=== PATIENT | female | born 1975 | race Asian ===

== ENCOUNTER 2024-08-02 04:36 | Inpatient (IN) | payer OTHER, SELFPAY ==
[2024-08-01 23:22] VITALS: BP 138/82
[2024-08-01 23:41] VITALS: BMI 27.1
[2024-08-01 23:42] LABS: % Basophils 0.5 % (0-2); % Eosinophils 0.5 % (0-6); % Immature Granulocytes 0.4 % (0-0.5); % Lymphocytes 10.3 % (20.5-51.1); % Monocytes 5.4 % (1.7-9.3); % Neutrophils 82.9 % (42.2-75.2); Absolute Lymphocytes 0.9 10^3/uL (1.2-3.4); Absolute Monocytes 0.5 10^3/uL (0.1-0.6); Hematocrit 32.7 % (37.0-47.0); Hemoglobin 11.4 g/dL (12.0-16.0); Mean Corp Hgb Conc. 34.9 g/dL (33.0-37.0); Mean Corpuscular Hgb 31.3 pg (27.0-31.0); Mean Corpuscular Volume 89.8 fL (81.0-99.0); Mean Platelet Volume 10.8 fL (7.4-10.4); Nucleated Red Blood Cells % 0 %; Platelet Count 199 10^3/uL (130-400); Red Blood Cell Count 3.64 10^6/uL (4.20-5.40); Red Cell Dist. Width 12.8 % (11.5-14.5); White Blood Cell Count 8.5 10^3/uL (4.8-10.8)
--- NOTE | 2024-08-01 23:48 | ED.GENMED ---
History of Present Illness
General
Chief Complaint: Abdominal Pain
Source: patient
Exam Limitations: none
Time Seen by Provider: 08/01/24 23:39
Nursing documentation reviewed up to this point in time: agreed with
History of Present Illness
History of Present Illness:
Note:
CHIEF COMPLAINT(S)
Abdominal pain
HISTORY OF PRESENT ILLNESS
The patient is a 48-year-old female presenting with abdominal pain that began around 4:00 AM this morning. The pain is described as diffuse, not limited to the left side. She denies any previous episodes of similar pain and lacks a history of
abdominal surgeries. The pain onset was sudden, with no accompanying diarrhea or constipation. She reports no vomiting but experiences nausea. The pain does not radiate to the back and is not accompanied by urinary symptoms such as burning or
hematuria. The patient possibly experienced a sensation of faintness last night around 9:00 PM but was initially waiting to see their regular doctor in the morning if symptoms improved. However, the symptoms worsened. She denies any history of
gastrointestinal issues and denies the presence of dyspnea, chest pain, or fevers. She has no known allergies to pain medications. The pain is worse with movement. She has never had pain like this in the past. Her last bowel movement was around 7:00
pm.
ALLERGIES
No known allergies to pain medications.
PHYSICAL EXAM
General: Patient appears uncomfortable secondary to pain but is non-toxic appearing
Skin: Warm and dry, no rashes or lesions
Head: Normocephalic, atraumatic
Eyes: Sclera non-icteric. EOMs intact.
Cardiac: Regular rate and rhythm, no murmurs
Peripheral Vascular: No lower extremity swelling or edema
Pulm: Normal respiratory effort, no wheezes, rales, or rhonchi
Abdomen: Diffuse lower abdominal tenderness to palpation noted with guarding, no palpable masses, decreased breath sounds
Neuro: CN II-XII intact, no focal neurologic deficits.
Psychiatric: Appropriate mood and affect.
PLAN
- Initiate pain management and address nausea with appropriate medications.
- Proceed with a computed tomography (CT) scan
- Continue monitoring patient�s symptoms and re-evaluate after imaging results are available.
DIFFERENTIAL DIAGNOSIS
The Differential Diagnosis includes, in no particular order and is not limited to:
small bowel obstruction, diverticulitis, appendicitis, gastritis, etc.
CHART REVIEW
- Reviewed ER physician documentation from 10/02/2021, patient seen for left upper chest pain and back pain, had unremarkable workup and was discharged
- Family physician is Dr. Casey Silva
DISPOSITION/MDM
48-year-old female presents emergency department today with concerns of diffuse abdominal pain starting yesterday. She was found to have hemoperitoneum likely secondary to ruptured ovarian cyst versus. She had no abdominal trauma. MANUFACTURING ENGINEER AUTOMOTIVE on-call
made aware. She is hemodynamically stable. Patient referred to hospitalist for admission.
Past History
Past History
ED Past Medical History: None
ED Past Surgical History: None
Social History
Tobacco: Non-smoker
Alcohol: None
Drug: None
Personal:
Living: with family
Employment: Not employed
Review of Systems
Review of Systems
All Other Systems: ROS reviewed and negative except as documented in HPI and ROS
Phy Exam
Physical Exam
Physical Exam:
see hpi
Course
Orders/Labs/Results
Orders:
Orders
08/01/24 23:31
Complete Blood Count/With Diff Urgent
Comprehensive Metabolic Panel Urgent
Lipase Urgent
08/01/24 23:46
Test Result ONCE
08/01/24 23:47
HCG, Urine Qualitative Screen Urgent
Date Specimen was Collected: 08/01/24
Time Specimen was Collected: 23:46
Urinalysis Reflex To Culture Urgent
Date Specimen was Collected: 08/01/24
Time Specimen was Collected: 23:46
Urine Microscopic Reflex Cult Urgent
Urine Culture Urgent
PAYAL Source: U
Specimen Description:
Date Specimen was Collected: 08/01/24
Time Specimen was Collected: 23:46
08/01/24 23:49
0.9% Sodium Chloride 1000 ml [Nss] 1,000 ml IV BOLUS
08/02/24 00:03
CT Abd/Pel (IV only)-DH only Urgent
Comment:
Reason For Exam: diffuse lower abdominal pain
HYDROmorphone [Dilaudid] 0.5 mg IV NOW STA
Ondansetron Injectable [Zofran] 4 mg IV NOW STA
08/02/24 01:34
US Pelvis W Transvag Combined Urgent
Comment:
Reason For Exam: pelvic pain, bleeding
08/02/24 01:35
HYDROmorphone [Dilaudid] 0.5 mg IV NOW STA
Ondansetron Injectable [Zofran] 4 mg IV NOW STA
08/02/24 01:36
0.9% Sodium Chloride 500 ml [Nss] 500 ml IV BOLUS
08/02/24 03:59
Admit/Transfer Patient As Directed
Co-Sign Provider:
Level of Care: Inpatient admission
Assign to:: Telemetry
Physician / Group: Mao
Diagnosis: Ruptured ovarian cyst
Reason for Telemetry: Other
Other Reason for Telemetry: hemoperitoneum
Date to Stop Telemetry: 08/04/24
Time to Stop Telemetry: 11:00
Reason for Hospitalization: hemoperitoneum
Expected length of stay greater than two midnights?: Yes
ELOS- Estimated Length of Stay in days: 2
I certify the patient meets the requirements for IP care: Yes
PRN Pain Medication Management As Directed
May give lesser potent ordered pain med per pt: Yes
preference::
Protocol:: Medication orders for pain may be administered in a
manner that supports deferring to patient preference
when the pt is:
- Requesting an ordered lesser potent pain medication.
Least to most potent pain medications are defined
as: acetaminophen < NSAID < tramadol < opioids
(morphine, oxycodone, hydromorphone).
- Requesting a lesser dose of the same medication IF
ORDERED.
- Requesting a less intrusive route of administration
if both routes are prescribed by the provider (PO <
IV).
08/02/24 04:00
Code Status As Directed
Resuscitation Status: Full Code
08/02/24 04:40
Acetaminophen [Tylenol/Feverall] 650 mg RECTAL Q4HPRN PRN
Bisacodyl [Dulcolax] 10 mg RECTAL [id number] PRN
Dextrose 5%/Lactringers 1000ML [D5lr] 1,000 ml IV 100 mls/hr
Docusate W/Senna [Senokot-S] 1 tablet PO BIDPRN PRN
HYDROmorphone [Dilaudid] 0.5 mg IV Q4HPRN PRN
Ondansetron Injectable [Zofran] 4 mg IV Q6HPRN PRN
Oxycodone [Roxicodone] 5 mg PO Q4HPRN PRN
Polyethylene Glycol Powder [Miralax] 17 grams PO DAILYPRN PRN
08/02/24 04:40
Consult MANUFACTURING ENGINEER AUTOMOTIVE [MANUFACTURING ENGINEER AUTOMOTIVE CONSULT] Routine
Consulting Provider: Judy Peterson
Was physician already notified: Yes
Reason for consult: hemoperitoneum, complex ruptured ovarian cyst or fibroid
Activity As Directed
Activity Level: With Assistance
Pneumatic Compression Sleeves As Directed
Type: Knee high
Vital Signs As Directed
Frequency: Per unit guidelines
Pulse Ox/spot Check [RESP] Routine
Quantity: 1
DX Deep Vein Thrombosis Video Routine
08/02/24 06:00
Type And Crossmatch [Type+Screen] IN AM
NPO
Allow oral meds: Yes
Allow clear liquids: Sips of Clears
Basic Metabolic Panel IN AM
Complete Blood Count/No Diff IN AM
PTT IN AM
Prothrombin Time IN AM
Levothyroxine [Synthroid] 88 mcg PO DAILY @ 0600
08/02/24 14:00
H&H Q8H
08/04/24 11:00
DC Protocol for Telemetry ONCE
Abnormal Lab Results
08/01/24 08/01/24
23:31 23:47
RBC 3.64 L 10^6/uL
(4.20-5.40)
Hgb 11.4 L g/dL
(12.0-16.0)
Hct 32.7 L %
(37.0-47.0)
MCH 31.3 H pg
(27.0-31.0)
MPV 10.8 H fL
(7.4-10.4)
Absolute Neuts (auto) 7.0 H 10^3/uL
(1.4-6.5)
Absolute Lymphs (auto) 0.9 L 10^3/uL
(1.2-3.4)
Neutrophils % 82.9 H %
(42.2-75.2)
Lymphocytes % 10.3 L %
(20.5-51.1)
Glucose 113 H mg/dl
(70-99)
Ur Occult Blood Reflex 2+ A
(Negative)
Leukocyte Esterase Rfl 1+ A
(Negative)
Urine RBC 3-6 A /HPF
(0-2)
Urine Bacteria (Reflex) Few A
(Negative)
Urine Albumin (Reflex) 1+ A
(Neg - Trace)
08/01/24 23:31
08/01/24 23:31
Vital Signs
Initial and Last Documented VS:
Initial Vital Signs
Temp Pulse Resp BP Pulse Ox
98.0 F 91 20 138/82 99
08/01/24 23:22 08/01/24 23:22 08/01/24 23:22 08/01/24 23:22 08/01/24 23:22
Last Documented Vital Signs
Temp Pulse Resp BP Pulse Ox
98.2 F 75 16 116/71 98
08/02/24 04:54 08/02/24 04:54 08/02/24 04:54 08/02/24 04:54 08/02/24 04:54
*Critical Care Note
Total Time (30-74mins, 75-104mins- exclusive of procedures): Not Applicable
ED Attending Note
-
Portions of this chart may have been created with voice recognition software.� Occasional wrong word or��sound alike� substitutions may have occurred due to the inherent limitations of voice recognition software.
Discharge Plan
Departure
Patient Disposition: Admit
Date of Disposition: 08/02/24
Time of Disposition: 03:33
Admit to: Med/Surg
Presentation/result/management discussed w/ accepting MD/DO: Hospitalist
Condition: Fair
Discharge Problem:
Hemoperitoneum, Cyst of left ovary
Interventions
Interventions:
*Risk Screen - Suicide Last Done: 08/01/24 23:22
*General Assessment Last Done: 08/01/24 23:22
*Neglect/Abuse Screening Last Done: 08/01/24 23:22
*ED- Fall Risk Assessment Last Done: 08/02/24 00:00
*ED COVID-19 Vaccine History Last Done: 08/01/24 23:22
*Nursing Disposition Last Done: 08/02/24 04:36
IN-Uljhhw-Gjmfhxcojg Assessment Last Done: 08/02/24 00:07
Discharge Date and Time
Discharge Date/Time: 08/02/24 04:36
[2024-08-01] MEDS: NSS 1000 IV (23:50)
[2024-08-01 23:56] LABS: ALT (SGPT) 22 U/L (0-35); AST (SGOT) 22 U/L (14-36); Albumin 4.1 g/dl (3.5-5.0); Alkaline Phosphatase 66 U/L (38-126); Blood Urea Nitrogen 16 mg/dl (7-17); Calcium 9.9 mg/dl (8.4-10.2); Carbon Dioxide 29 mmol/L (22-30); Chloride 104 mmol/L (98-107); Estimated Creatinine Clearance 86 ml/min; Glucose 113 mg/dl (70-99); Lipase 62 U/L (23-300); Potassium 4.5 mmol/L (3.5-5.1); Sodium 137 mmol/L (135-145); Total Bilirubin 0.4 mg/dl (0.2-1.3); Total Protein 6.9 g/dl (6.3-8.2); eGFR > 60.00
[2024-08-02 00:02] LABS: HCG, Urine Qualitative Screen Negative; Urine Albumin 1+ (Neg - Trace); Urine Bilirubin Negative (Negative); Urine Character Slightly Cloudy (Clear); Urine Color Yellow; Urine Glucose Negative (Negative); Urine Ketone Negative (Negative); Urine Leukocyte 1+ (Negative); Urine Nitrite Negative (Negative); Urine Occult Blood 2+ (Negative); Urine Specific Gravity 1.025 (<1.030); Urine Urobilinogen Negative (Neg - 1+)
[2024-08-02] MEDS: DILAUDID 0.5 MG IV ×2 (00:14→01:43)
[2024-08-02] MEDS: ZOFRAN 4 MG IV ×2 (00:14→01:43)
[2024-08-02 00:28] LABS: Urine Squamous Cell >30 /LPF (Few)
[2024-08-02 00:29] LABS: Urine Bacteria Few (Negative); Urine White Cell 0-2 /HPF (0-5)
[2024-08-02] MEDS: NSS 500 IV (01:43)
[2024-08-02 01:44] VITALS: BP 113/65
[2024-08-02 02:00] VITALS: BP 118/67
--- NOTE | 2024-08-02 03:41 | HPS.HSE ---
Family Physician
-
Family Physician: Casey Silva
Chief Complaint
-
Abdominal pain
History of Present Illness
This is a 48-year-old female with past medical history of hypothyroidism who presents to the emergency department with 1 day history of pelvic and abdominal pain.
Patient reported that she was at 4 AM the previous day with bilateral lower abdominal and pelvic pain. She denied any flank pain. She denies having any fevers or chills. She denies any dysuria. She denies having any diarrhea. She denies any
vaginal discharge. Pain persisted throughout the day and then in the evening she started having nausea vomiting. It was nonbloody and nonbilious.
Patient denies any ingestions. She denies any new medications. She denies any recent travels or sick contacts.
In the emergency department the patient was afebrile, blood pressure was 115/75 with a pulse rate of 81 and she was satting 98% on room air.
Hemoglobin was 11.4 she had normal platelet count and a normal WBC. Electrolytes BUN/creatinine were normal. LFTs were normal.
UA was unremarkable
Ultrasound of the pelvis showed hemorrhagic fluid within the pelvis including the suspected clots in the left adnexa measuring up to 9 hemoperitoneum which can be related to rupture of the left ovarian corpus luteum
CT of the abdomen pelvis revealing moderate volume of heterogeneous free fluid throughout the abdomen and pelvis most compatible with hemoperitoneum. Moderate volume in the pelvis. There is a suggestion of a small left ovarian complex lithium
which could reflect sequela of rupture of the left ovarian complex lesion. There is also note made of a large fibroid in the posterior uterus. This is considerably subjective spontaneous rupture although this points less likely as the next
management for the hemoperitoneum.
Medical History
Past Medical History
Past Medical History: Reports Hypothyroidism
Past Surgical History: Reports Other
Social History
Tobacco: Non-smoker
Alcohol: None
Drug: None
Personal:
Living: With Family
Family History
Family History: Not pertinent
Allergies / Home Medications
Allergies reflects when Allergies were last updated in [facility].
Home Medications with original date entered in [facility]
Allergy/Medication List:
Allergies
Allergy/AdvReac Type Severity Reaction Status Date / Time
No Known Allergies Allergy Unverified 09/28/21 09:04
Home Medications
levothyroxine 88 mcg tablet 88 mcg PO DAILY 08/01/24
Review of Systems
-
Constitutional: Reports No Symptoms
EENT: Reports No Symptoms
Respiratory: Reports No Symptoms
Cardiac: Reports No Symptoms
Abdomen/GI: Reports Abdominal Pain
: Reports No Symptoms
Musculoskeletal: Reports No Symptoms
Skin: Reports No Symptoms
Neurological: Reports No Symptoms
Endocrine: Reports No Symptoms
Hematologic/Lymphatic: Reports No Symptoms
Psych: Reports No Symptoms
Physical Exam
Vital Signs
Vital Signs
Temp Pulse Resp BP Pulse Ox
98.0 F 81 20 113/65 98
08/01/24 23:22 08/02/24 01:45 08/01/24 23:22 08/02/24 01:44 08/02/24 01:45
Physical Exam
General: Well Developed, Well Nourished and No Apparent Distress
HEENT: NormoCephalic, Moist mucous membranes and Atraumatic
Respiratory: Clear
Cardiac: S1/S2 and Regular Rhythm; No Murmur or Rub
GI: Soft, Non Tender, Non Distended and Normal Bowel Sounds; No Organomegaly
Rectal: Deferred by Provider
Musculoskeletal: No Clubbing, No Cyanosis and No Edema
Skin: No Rash
Neuro: Nonfocal/grossly intact
Laboratory Results
-
08/01/24 23:31
08/01/24 23:31
Laboratory Results
Total Bilirubin 0.4 mg/dl (0.2-1.3) 08/01/24 23:31
AST 22 U/L (14-36) 08/01/24 23:31
ALT 22 U/L (0-35) 08/01/24 23:31
Alkaline Phosphatase 66 U/L (38-126) 08/01/24 23:31
Lipase 62 U/L (23-300) 08/01/24 23:31
Impression/Plan
-
IMPRESSION:
48-year-old female with history of hypothyroid who presents with abdominal pain. CT scan shows hemoperitoneum likely secondary to complicated ruptured left ovarian cyst. No personal history of any malignancy. No signs of acute infection. She is
afebrile, without leukocytosis. She is nontoxic-appearing at this time. There is seems to be a significant amount of fluid in the peritoneum but no evidence of any rupture. Hemoglobin is stable at 11 but unknown baseline.
PLAN:
Pneumoperitoneum secondary to likely ovarian cyst. There is also a posterior fibroid that could be source of bleeding but less likely.
-Admit to telemetry
-Patient with stable status post ovarian cyst rupture does not require immediate surgery and can be monitored
-Type and screen
-H&H every 12
-Pain control and antiemetics
-N.p.o. for now, iv fluids
-Hold off antibiotics
-may need eval for malignancy
- fiscal services manager aware and consulted (Dr. Peterson)
DVT PPX - SCDs for now
Code status - Full code
[2024-08-02 04:44] VITALS: BMI 27.0
[2024-08-02 04:54] VITALS: BP 116/71
[2024-08-02] MEDS: D5LR 1000 IV (05:04)
[2024-08-02] MEDS: SYNTHROID 88 MCG PO (05:04)
[2024-08-02 06:00] VITALS: BMI 27.1
--- NOTE | 2024-08-02 06:03 | PTCARENOTE ---
pt is aaox3, reported pain 4/10, and nauseous. declined any pain meds at this time. stated Dilaudid made her feel better, but also a little numb all over. pt denies any vaginal bleeding at this time. pt placed on IVF, oriented to room w/ call mills
in reach. will monitor.
[2024-08-02 07:25] VITALS: BP 114/66
[2024-08-02 07:37] LABS: Hemoglobin 10.5 g/dL (12.0-16.0); Mean Corpuscular Hgb 31.4 pg (27.0-31.0); Mean Corpuscular Volume 89.8 fL (81.0-99.0); Mean Platelet Volume 10.8 fL (7.4-10.4); Platelet Count 163 10^3/uL (130-400); Red Blood Cell Count 3.34 10^6/uL (4.20-5.40); Red Cell Dist. Width 12.9 % (11.5-14.5); White Blood Cell Count 5.8 10^3/uL (4.8-10.8)
[2024-08-02 08:11] LABS: Blood Urea Nitrogen 10 mg/dl (7-17); Calcium 8.9 mg/dl (8.4-10.2); Carbon Dioxide 30 mmol/L (22-30); Chloride 106 mmol/L (98-107); Estimated Creatinine Clearance 101 ml/min; Glucose 113 mg/dl (70-99); Potassium 4.1 mmol/L (3.5-5.1); Sodium 138 mmol/L (135-145); eGFR > 60.00
[2024-08-02 08:16] LABS: INR 1.09; PT 14.6 Sec (11.4-14.6)
[2024-08-02 08:17] LABS: APTT 37.9 Sec (23.4-35.0)
--- NOTE | 2024-08-02 10:02 | W.PN.HOSP.TC ---
Addendum entered and electronically signed by Shadia Cloud MD 08/02/24 17:58:
Total DC time 45 minutes
Addendum entered and electronically signed by Shadia Cloud MD 08/02/24 17:48:
Discussed with hammersmith helper Dr. Escobar. Patient can be discharged from her perspective.
Repeat hemoglobin stable at 10.5. She can check repeat hemoglobin outpatient in 3 days with result to her PCP.
Tylenol for pain control.
Updated RN
Original Note:
Today's Communication/Plan
-
see A/P
Assessment / Plan
Assessment / Plan
HPI: 48-year-old female with history of hypothyroidism who presented with abdominal pain. CT scan shows hemoperitoneum likely secondary to complicated ruptured left ovarian cyst. No personal history of any malignancy. No signs of acute infection.
She is afebrile, without leukocytosis. She is nontoxic-appearing at this time. There is seems to be a significant amount of fluid in the peritoneum but no evidence of any rupture.
Hemoglobin stable at 11 on admission (but unknown baseline).
Pelvis US:
1. Moderate amount of complex fluid within the pelvis, likely reflective of hemorrhage, including a localized collection within the left adnexa which likely represents a hematoma, measuring up to 9.1 cm in diameter.
2. 1.7 cm left ovarian corpus luteal cyst. Given adjacent hematoma, the left ovarian corpus luteal cyst may be the source of peritoneal hemorrhage (sentinel clot sign).
3. Uterine fibroids.
CT AP:
1. Small volume intraperitoneal hyperattenuating fluid, likely representing hemorrhage. No extravasation of contrast.
2. Hemorrhage is most abundant and most hyperattenuating within the pelvis, suggestive of a pelvic source. Left corpus luteal cyst. Overall, findings may represent rupture of a hemorrhagic ovarian cyst.
3. Multiple uterine fibroids.
A/P:
# Pneumoperitoneum likely secondary to ovarian cyst rupture. There is also a posterior fibroid that could be source of bleeding but less likely.
Monitor VS, Hgb
Cont Pain control with Tylenol, oxycodone and IV Dilaudid
antiemetic PRN
NPO until lifted by RAD TECH. IVF support while NPO
Hold off antibiotics
journeyman lineman consulted (Dr. Peterson)
# history of hypothyroidism
Cont GUT SNATCHER Synthroid
DVT PPX - SCDs for now
Code status - Full code
DW daughter at bedside
Anticipated Discharge: 24 - 48 hours
Subjective/Interval History
-
Date of Service: August 02, 2024
Objective Data
-
Labs:
Laboratory Results
08/01/24 08/02/24 08/02/24
23:31 07:05 14:00
WBC 8.5 5.8
Hgb 11.4 L 10.5 L Pending
Hct 32.7 L 30.0 L Pending
Plt Count 199 163
PT 14.6
INR 1.09
APTT 37.9 H
Sodium 137 138
Potassium 4.5 4.1
Chloride 104 106
Carbon Dioxide 29 30
BUN 16 10
Creatinine 0.7 0.6
Glucose 113 H 113 H
Calcium 9.9 8.9
Total Bilirubin 0.4
AST 22
ALT 22
Alkaline Phosphatase 66
Vital Signs:
Vital Signs
Temp Pulse Resp BP Pulse Ox
36.6 C 69 16 114/66 100
08/02/24 07:25 08/02/24 07:25 08/02/24 07:25 08/02/24 07:25 08/02/24 07:25
I&O
08/01/24 08/02/24 08/03/24
06:59 06:59 06:59
Intake Total 200 / 200 200 / 200
Balance 200 / 200 200 / 200
Review of Systems
-
History Source: Patient
Abdomen/GI: Reports Abdominal Pain (pelvic area pain )
Physical Exam
-
General: Well Developed, Well Nourished, No Apparent Distress, Comfortable and Conversant; Negative Respiratory Distress
HEENT: Normocephalic, Atraumatic, Nose Appears Normal and Ears Appear Normal; Negative Oxygen
Respiratory: Clear to Auscultation and Non Labored Respirations; Negative Accessory Resp Muscle Use
Cardiac: Regular Rhythm and S1/S2
GI: Soft, Nondistended and Tender (mildly tender over pelvis area)
Skin: Warm and Dry
Neuro: Awake, Alert, Oriented and AO x 3
Psych: Calm and Intact Judgement/Insight
Data Reviewed
-
CT Scan: Report Reviewed by me
Ultrasound: Report Reviewed by me
Labs: Labs Reviewed by me
[2024-08-02 11:40] VITALS: BP 121/68
--- NOTE | 2024-08-02 11:53 | CM ---
Addendum entered by Paula Rueda 08/02/24 12:07:
PCP is Dr. Mccoy and Pharmacy is [facility] in [place].
Original Note:
Initial assessment completed with patient and daughter. Patient lives with her and 3 children (17-20-25 Y/O) in a 2 story home plus basement with B/B on 2nd, 1/2 bath on , 2 steps to enter home. INDEPENDENT INSURANCE ADJUSTER patient was independent in ADL's and
ambulation, drives, works FT, has a RW in the home, no in-home services. No HC-POA, no service Discharge POC: Home with HH RN. DH is preference.
--- NOTE | 2024-08-02 13:22 | CON.MD ---
Consultation - Medical
-
48-year-old female G3, P3 female with LMP 07/25/2024, admitted due to abdominal pain and hemoperitoneum noted on imaging. Consult was called to Dr. Peterson approximately 6 AM. BIRDCAGE ASSEMBLER service extremely busy today. I was not available to see the patient
until 1700 today as I was detained with deliveries and MOTORIZED SQUAD SERGEANT surgeries today. Prior to coming to see the patient, I did review her chart and lab work and noted her hemoglobin is stable.
History significant for bilateral lower abdominal and pelvic pain for which started on 07/31/2024. Did not have any associated fever or chills, diarrhea. Denied any nausea vomiting yesterday. Pain intensified through the day and she presented to
the emergency room 08/02/2024. She did have some nausea later in the evening. She came to the emergency room approximately 11 PM last night. Imaging revealed complex fluid in the pelvis near left adnexa and suspicion was for ruptured left adnexal
cyst. She took pain medicine IV last night but has not required pain medicine since. She states she is feeling better this morning. She denies taking any oral pain medication today. She has some mild discomfort. She has been up out of bed and
denies any dizziness, lightheadedness. Denies any severe pain.
Past medical history: Hypothyroidism, fibroid uterus, history of shingles
Past surgical history: Negative
MOTORIZED SQUAD SERGEANT history: Unremarkable. Has not seen hvac specialist in over [address] Marisol Mendoza ([facility]). She has an upcoming appointment in August.
NKDA
Medications: Levothyroxine 88 mcg p.o. daily, pregabalin 150 mg p.o. daily for shingles
Social history: , negative tobacco alcohol recreational drug use
Family history: Parents with hypertension. No family history for cancers
Review of systems: She reports heavy menses recently. Otherwise does not add. No shortness of breath,no chest pain. Denies dysuria, denies current nausea/vomiting/diarrhea.
Physical exam:Blood pressure 123/59 pulse 67 respirations 18 temperature 97.6
General Appearance: Well-appearing, no acute distress. She is lying comfortably in bed.
Heart: Regular
Lungs: Respirations normal rate. Breathing comfortably.
Abdomen: Soft, nondistended. Minimal tenderness with deep palpation along the lower pelvis more in the midline. No guarding, rebound, rigidity.
Pelvic examination was deferred.
Extremities no calf pain or tenderness
Admission hemoglobin 08/01/2024 was 11.4/hematocrit 32.7
Hemoglobin 08/02/24: 10.5/hematocrit 30.[address] abdomen/pelvis [facility] 08/02/2024: Small volume intraperitoneal hyperattenuating fluid, likely representing hemorrhage. No extravasation of contrast. Hemorrhage is most abundant and most hyperattenuating within the pelvis, suggesting
a pelvic source. Left corpus luteal cyst. Overall, findings may represent a rupture of hemorrhagic to ovarian cyst. Multiple uterine fibroids noted.
Pelvic/TVUS ultrasound [facility] 08/02/2024: Uterus is anteverted 11 cm in greatest dimension. Multiple hypoechoic uterine fibroids measuring up to 3.8 cm in diameter. Moderate amount of free fluid in the pelvis. Right ovary measures 2.1
cm greatest dimension. No ovarian mass or large cyst appreciated. Left ovary measures 2.9 cm in greatest dimension. Corpus luteal cyst seen within the left ovary, partially collapsed, with peripheral vascularity, measuring 1.7 cm in diameter.
Complex fluid seen in the left adnexa likely reflective of hemorrhage. Given adjacent hematoma, left corpus luteal cyst may be source of peritoneal hemorrhage (sentinel clot sign).
Impression:
1. Acute abdominal pain
2. Left corpus luteal cyst
3. Uterine fibroids
4. Pelvic fluid felt to be hemoperitoneum. Hemoglobin has been stable overnight till this morning. Patient is relatively asymptomatic. No hypotension symptoms no dizziness no lightheadedness.
5. Menorrhagia
Plan:
I ordered a repeat hemoglobin hematocrit to make sure the level is stable. The patient appears to be comfortable and her symptoms are dissipating. She has not required any pain medication today orally. She feels comfortable going home. If her
repeat hemoglobin is stable, I will let primary service know that she is stable for discharge. I reviewed hemoperitoneum and ruptured cyst. I explained that the fluid is expected to be blood/hemorrhage from a ruptured cyst. If her hemoglobin is
stable it suggest that this is no longer actively bleeding. Her symptoms are anticipated to continue to improve. She will reabsorb the fluid in the abdomen.
She has an upcoming appointment with her hvac specialist. I suggested that she contact MOTORIZED SQUAD SERGEANT and make appointment sooner for follow-up.
She should return to the hospital for any worsening symptoms including fever, chills, severe abdominal pain, syncope or presyncopal symptoms.
I discussed that she has uterine fibroids and this should be discussed with her primary MOTORIZED SQUAD SERGEANT doctor. Explained that there are management options available for symptomatic fibroids. She should follow-up with her hvac specialist to discuss.
Time required including review of chart, [id number] time counseling patient and coordination of care was over 40 minutes total
Consultation
-
Date/Time Consultation Requested: 08/02/2024 04:00
Date/Time Consultation Performed: 08/02/2024 17:00
Requesting Provider: Dr. Shadia Cloud
Performing Provider: Dr. Nanda Escobar
Reason for Consultation: Ovarian cyst
--- NOTE | 2024-08-02 14:56 | PTCARENOTE ---
Patient voices frustration with wait time to see consulting team. Patient states, 'I have a libertarian tonight at home to get to and I have been here since last night and have not see a doctor yet'. RN relayed to patient that she has reached out to supervisor electric
contract modeler and relayed to pt that consulting physician will see her as soon as she can. RN offered ambulation assistance, toileting, pain medications all of which pt refused. RN relayed all pertinent lab work, vital signs, and plan to patient again.
Hospitalist MD has already seen patient for rounds. Both hospitalist and supervisor electric are keeping pt npo until supervisor electric consult can be performed and surgery can be definitely ruled out. RN explained NPO status and rationale to patient who stated, 'you do not
understand, I have no eaten since I was in the emergency room'. RN expressed sympathy for the wait time for the patient, but again reassured patient that a physician will be by to assess her and offer a plan of care and if there is no surgery she
can eat. Pt's VS are WNL, h&h is stable, pt pain is 3/10 and she refused RN offer for pain medication. See MAR/flowsheets for further care details.
[2024-08-02 15:20] VITALS: BP 123/59
--- NOTE | 2024-08-02 16:41 | PTCARENOTE ---
RN checked in on patient, offered ice chips, pain meds. Pt refused offer for both. RN relayed to patient that analytical lab technician is still on the way to see her today. Pt's 1500 vital signs wnl
[2024-08-02 17:29] LABS: Hemoglobin 10.5 g/dL (12.0-16.0)
--- NOTE | 2024-08-02 17:54 | W.DCSUMMARY ---
Discharge Summary
Discharge Data
Date of Admission: 08/02/24
Date of Discharge: 08/02/24
-
Pending Results: No
Hospital Course
Principal Diagnosis:
Pneumoperitoneum likely secondary to ovarian cyst rupture.
Chronic Diagnoses:�
Hypothyroidism on Synthroid
Consultations:�
Employee Placement Specialist
Procedures:�
None
Clinical course:�
This is a 48-year-old female with past medical history of hypothyroidism who presented with pelvic area pain.
Pelvis US:
1. Moderate amount of complex fluid within the pelvis, likely reflective of hemorrhage, including a localized collection within the left adnexa which likely represents a hematoma, measuring up to 9.1 cm in diameter.
2. 1.7 cm left ovarian corpus luteal cyst. Given adjacent hematoma, the left ovarian corpus luteal cyst may be the source of peritoneal hemorrhage (sentinel clot sign).
3. Uterine fibroids.
CT AP:
1. Small volume intraperitoneal hyperattenuating fluid, likely representing hemorrhage. No extravasation of contrast.
2. Hemorrhage is most abundant and most hyperattenuating within the pelvis, suggestive of a pelvic source. Left corpus luteal cyst. Overall, findings may represent rupture of a hemorrhagic ovarian cyst.
3. Multiple uterine fibroids.
Problem 1:
Pneumoperitoneum likely secondary to ovarian cyst rupture.
Her vital sign was stable; hemoglobin stable and was at 10.5 at the time of discharge. The patient can check repeat hemoglobin in 3 days with result to his PCP.
She can continue Tylenol as needed for pain control following discharge.
She was seen by cattle sticker Dr. Escobar and was cleared for discharge.
As for the rest of her medical problems, they were stable during her hospital stay.
Discharge Plan
-
Patient Disposition: Home (Routine Discharge)
Discharge Diagnosis/Procedures: Pneumoperitoneum likely secondary to ovarian cyst rupture
Condition: Good
Diet: As tolerated
Activity: As tolerated
Driving Restrictions: As prior to admission
Blood Work: CBC in 3 days, result to PCP
Referrals:
Casey Silva MD [Family Provider, Internal Medicine] - in less than 1 week
Prescriptions:
New
acetaminophen [Tylenol Extra Strength] 500 mg tablet
500 mg PO Q6H PRN (Reason: Pain) Qty: 20 0RF
Continued
levothyroxine 88 mcg Tablet
88 mcg PO DAILY
Discharge Orders:
Discharge Patient (As Directed); Ordered 08/02/24
Ordered By: Shadia Cloud
Discharge Date and Time
Print Language: SWEDISH
--- NOTE | 2024-08-02 18:45 | W.PN.UPDATE ---
Update Note
Progress Note Update
Repeat hemoglobin at 17: 21 was 10.5/30.0 which is unchanged since 7 AM.
She is symptomatically improving without pain medication. She declined prescription for pain medicine
For discharge. She will follow-up with her president & ceo Marisol Francisco MD (?spelling).
I Hurley texted [place] to let her know pt stable for discharge from MANUFACTURING DESIGN ENGINEER standpoint.
--- NOTE | 2024-08-03 09:26 | CM ---
Patient was discharged to home with no additional skilled services on 08/02/24.
== END 2024-08-02 18:40 | disposition home or self-care (01) | DRG 760 ==
LOC: 2 SOUTH 04:36
PROVIDERS: Physician Assistant; ADMITTING PHYSICIAN Internal Medicine; ATTENDING PHYSICIAN Internal Medicine; EMERGENCY PHYSICIAN Student in an Organized Health Care Education/Training Program; FAMILY PHYSICIAN Internal Medicine; OTHER PHYSICIAN Obstetrics & Gynecology
DX: N83.12 Corpus luteum cyst of left ovary (principal); K66.1 Hemoperitoneum; E03.9 Hypothyroidism, unspecified; Z79.890 Hormone replacement therapy; D25.9 Leiomyoma of uterus, unspecified; N92.0 Excessive and frequent menstruation with regular cycle; Z82.49 Family history of ischemic heart disease and other diseases of the circulatory system; Z86.19 Personal history of other infectious and parasitic diseases
CPT/HCPCS: 74177; 76830; 76856; 80048; 80053; 81003; 81015; 81025; 83690; 85014; 85018; 85025; 85027; 85610; 85730; 86850; 86900; 86901; 87086; 96361; 96374; 96375; 96376; 99285; Q9967

== ENCOUNTER 2024-08-30 21:38 | Emergency (ER) | payer OTHER, SELFPAY ==
[2024-08-30 21:40] VITALS: BP 136/78
[2024-08-30 22:10] LABS: Hematocrit 38.9 % (37.0-47.0); Hemoglobin 13.2 g/dL (12.0-16.0); Mean Corp Hgb Conc. 33.9 g/dL (33.0-37.0); Mean Corpuscular Volume 90.3 fL (81.0-99.0); Nucleated Red Blood Cells % 0 %; Platelet Count 159 10^3/uL (130-400); Red Cell Dist. Width 12.1 % (11.5-14.5)
[2024-08-30 22:21] LABS: HCG, Serum Qualitative Screen Negative
[2024-08-30 22:28] LABS: ALT (SGPT) 21 U/L (0-35); AST (SGOT) 24 U/L (14-36); Albumin 4.3 g/dl (3.5-5.0); Alkaline Phosphatase 77 U/L (38-126); Blood Urea Nitrogen 12 mg/dl (7-17); Calcium 9.8 mg/dl (8.4-10.2); Carbon Dioxide 29 mmol/L (22-30); Chloride 106 mmol/L (98-107); Glucose 106 mg/dl (70-99); Lipase 64 U/L (23-300); Potassium 4.3 mmol/L (3.5-5.1); Sodium 138 mmol/L (135-145); Total Protein 7.4 g/dl (6.3-8.2); eGFR > 60.00
[2024-08-30 22:30] LABS: Troponin I < 0.012 ng/ml
[2024-08-31 00:18] VITALS: BP 128/81
[2024-08-31 00:20] VITALS: BMI 26.8
[2024-08-31 02:14] LABS: Troponin I < 0.012 ng/ml
[2024-08-31 02:20] VITALS: BP 117/67
[2024-08-31 03:00] VITALS: BP 120/67
--- NOTE | 2024-08-31 03:02 | ED.GENMED ---
History of Present Illness
General
Chief Complaint: Chest Pain
Source: patient and previous hospital records (Hospitalization August 02 for pelvic pain, found to have ruptured ovarian cyst with hemoperitoneum.)
Exam Limitations: none
Time Seen by Provider: 08/31/24 02:50
Nursing documentation reviewed up to this point in time: agreed with
History of Present Illness
History of Present Illness:
This is a 48-year-old woman with history of hypothyroidism, postherpetic neuralgia who was briefly hospitalized August 02 when she presented with lower abdominal pain and imaging revealed ruptured ovarian cyst with hemoperitoneum. She did not require
surgery, hemoglobin remained stable and she was discharged to home to follow-up with her supervisor kennel. She has had no recurrent pelvic pain but presents this evening with complaints of epigastric abdominal pain, lower substernal chest pain that
began this morning after an episode of vomiting. She denies hematemesis, denies recurrent vomiting but has had persistent epigastric pain, lower chest discomfort that is worse with eating and drinking. No cough no shortness of breath, no fever no
chills. No diarrhea or constipation. She denies neck nor back pain.
No history of similar episodes in the past.
She denies NSAID use, denies alcohol use.
Past History
Past History
ED Past Medical History: Hypothyroidism, Other (Ruptured ovarian cyst with hemopneumoperitoneum July 2024) and Other (Postherpetic neuralgia)
ED Past Surgical History: None
Social History
Tobacco: Non-smoker
Alcohol: None
Drug: None
Personal:
Living: with family
Employment: Not employed
Family History
Family History: Hypertension
Phy Exam
Physical Exam
Physical Exam:
GENERAL: 48-year-old woman appears her stated age, awake and alert, pleasant, appears in no acute distress.
EYE: anicteric
NECK: Supple, nontender, no meningismus, no significant adenopathy.
ENT: oral mucosa is moist. No rhinorrhea.
CARDIAC: Regular rate and rhythm. no murmur.
LUNGS: Clear breath sounds bilaterally, no acute respiratory distress, no wheezes/rales/rhonchi
ABDOMEN: Soft, nondistended, moderate tenderness epigastric region, no r/g, no cvat. normoactive BS.
NEUROLOGICAL: Alert and oriented x3, no focal neuro deficits.
SKIN: Warm and dry, normal color, skin intact. No rash.
MUSCULOSKELETAL: No C/C/E. peripheral pulses are full and equal b/l. No palpable tenderness.
PSYCH: Normal and appropriate interaction.
Scores
Heart Score for Chest Pain Patients
STEMI patient?: No
History: Slightly or Non-Suspicious
ECG: Normal
Age: >45 - <65 years
Risk Factors: No Risk Factors
Troponin: </= Normal Limit
Heart Score for Chest Pain Patients: 1
Heart Score Risk: 2.5% MACE over next 6 weeks
Course
Orders/Labs/Results
Orders:
Orders
08/30/24 21:40
Electrocardiogram (*1) Urgent
Reason for Study: Chest Pain
Cardiac Monitoring- Treatment ONCE
EKG- Treatment ONCE
IV Insert/Care/Rem.- Treatment PRN
Test Result ONCE
O2 Therapy [RESP] Urgent
Titrate/Wean O2 to maintain O2 sat greater than (%): 90
Special Instructions: Maintain sats >/=90%
Pulse Ox/spot Check [RESP] Urgent
Quantity: 1
Special Instructions: ON ROOM AIR
08/30/24 21:58
Complete Blood Count/With Diff Urgent
Comprehensive Metabolic Panel Urgent
HCG, Serum Qualitative Screen Urgent
Comment: Notify provider if positive test present
Lactic Acid Urgent
Lipase Urgent
Comment: ADD ON
Troponin I Urgent
08/30/24 22:01
Add On- LAB Urgent
Comments:: lipase
Tests Added?: lipase
08/31/24 00:49
Troponin I Urgent
08/31/24 03:02
US Abdomen Complete/Upper Urgent
Comment:
Reason For Exam: acute epigastric pain, N/V
08/31/24 04:43
Mag Hydrox/Al Hydrox/Simeth [Maalox] 30 ml Phenobarb/Hyoscy/Atropine/Scop [] 10 ml Viscous Lidocaine 2% [Xylocaine Viscous Cup] 10 ml PO NOW
08/31/24 05:13
Phenobarb/Hyoscy/Atropine/Scop [] 10 ml .ROUTE .STK-MED ONE
08/31/24 05:14
Mag Hydrox/Al Hydrox/Simeth [Maalox] 30 ml .ROUTE .STK-MED ONE
Viscous Lidocaine 2% [Xylocaine Viscous Cup] 15 ml .ROUTE .STK-MED ONE
Abnormal Lab Results
08/30/24
21:58
MPV 10.8 H fL
(7.4-10.4)
Lymphocytes % 19.1 L %
(20.5-51.1)
Glucose 106 H mg/dl
(70-99)
08/30/24 21:58
08/30/24 21:58
Vital Signs
Initial and Last Documented VS:
Initial Vital Signs
Temp Pulse Resp BP Pulse Ox
98.1 F 85 18 136/78 100
08/30/24 21:40 08/30/24 21:40 08/30/24 21:40 08/30/24 21:40 08/30/24 21:40
Last Documented Vital Signs
Temp Pulse Resp BP Pulse Ox
98.1 F 64 15 122/64 100
08/30/24 21:40 08/31/24 03:15 08/31/24 03:15 08/31/24 04:00 08/31/24 04:00
MDM/Problems Addressed
Differential Diagnosis Includes:
Concern for acute gastritis/GERD, pancreatitis, cholecystitis, ACS is another consideration.
Labs are unremarkable as is EKG. Troponin x 2 negative.
Will check abdominal ultrasound.
*Radiology
Radiology exam reviewed: radiology read reviewed (Abdominal ultrasound is unremarkable. Normal gallbladder. Negative Brown sign. Common bile duct normal at 5 mm.)
*Pulse Oximetry
SaO2: 100
Oxygen Mode of Delivery: Room air
Patient hypoxic: no
*EKG
Interpreted by ED Provider?: Yes
Interpretation: normal
Comparison EKG: no changes
Rate: normal
Rhythm: sinus
[employer]: normal axis
Interval: normal interval
QRS Pattern: normal QRS
Ischemia: no ischemia
*Vocational Rehabilitation Administrator Interpretation
Rate: normal
Interpretation: normal
Rhythm: sinus
*Critical Care Note
Total Time (30-74mins, 75-104mins- exclusive of procedures): Not Applicable
Update Note
Update Note:
Troponin again is negative.
Abdominal ultrasound is unremarkable.
Patient sleeping when undisturbed.
Will trial a GI cocktail.
Patient now informs me that her PCP has prescribed famotidine 40 mg twice daily that she began taking yesterday. Recommend she continue this for what I suspect is acute acid reflux/GERD.
Recommend bland diet avoiding spicy or fried foods, avoid NSAIDs, alcohol.
Prompt follow-up with PCP for recheck.
ED Attending Note
-
Portions of this chart may have been created with voice recognition software.� Occasional wrong word or��sound alike� substitutions may have occurred due to the inherent limitations of voice recognition software.
Discharge Plan
Departure
Patient Disposition: Home (Routine Discharge)
Date of Disposition: 08/31/24
Time of Disposition: 04:51
Patient with high blood pressure during this ER visit?: No
Condition: Good
Discharge Problem:
acute GERD with esophagitis
Instructions: Acid Reflux and GERD in Adults (DC)
Prescriptions:
No Action
levothyroxine 88 mcg Tablet
88 mcg PO DAILY
acetaminophen [Tylenol Extra Strength] 500 mg tablet
500 mg PO Q6H PRN (Reason: Pain) Qty: 20 0RF
Referrals:
Casey Silva MD [Family Provider, Internal Medicine] - Call in 1-3 days for appt
Interventions
Interventions:
*Risk Screen - Suicide Last Done: 08/30/24 21:40
*General Assessment Last Done: 08/31/24 02:22
*Neglect/Abuse Screening Last Done: 08/30/24 21:40
*ED- Fall Risk Assessment Last Done: 08/31/24 02:22
*ED COVID-19 Vaccine History Last Done: 08/31/24 02:22
*Nursing Disposition Last Done: 08/31/24 05:20
ED- Cardiac Assessment Last Done: 08/31/24 00:22
Discharge Date and Time
Print Language: OMANI
[2024-08-31 04:00] VITALS: BP 122/64
[2024-08-31] MEDS: MAALOX 50 PO (05:17)
== END 2024-08-31 07:57 | disposition home or self-care (01) ==
LOC: EMR 21:38
PROVIDERS: Student in an Organized Health Care Education/Training Program; EMERGENCY PHYSICIAN Emergency Medicine; FAMILY PHYSICIAN Internal Medicine
DX: K21.00 Gastro-esophageal reflux disease with esophagitis, without bleeding (principal); E03.9 Hypothyroidism, unspecified; B02.29 Other postherpetic nervous system involvement; B02.9 Zoster without complications
CPT/HCPCS: 99284; 76700; 80053; 83605; 83690; 84484; 84703; 85025; 93005